=== PATIENT | male | born 1980 | race African-American/Black ===

== ENCOUNTER 2020-10-12 12:09 | Inpatient (IN) | payer OTHER ==
[2020-10-12 15:03] LABS: BASO % 0.8 % (0-2.0); EOS % 0.1 % (0-4.5); HEMATOCRIT 41.2 % (35.4-49); HEMOGLOBIN 13.6 GM/dL (11.7-16.9); LYMPH % 11.6 % (8-40); MCH 29.4 pg (25.7-33.7); MCHC 33.2 g/dl (32.0-35.9); MEAN CELL VOLUME 88.7 fl (80-96); MEAN PLT VOLUME 10.7 fl (7.5-11.1); MONO % 8.6 % (3.8-10.2); NEUT % 78.9 % (42.8-82.8); PLATELET COUNT 189 10^3/uL (134-434); RBC 4.64 M/mm3 (4.00-5.60); RDW 13.1 % (11.9-15.9); WHITE BLOOD COUNT 13.5 K/mm3 (4.0-10.0)
[2020-10-12 15:24] LABS: ALBUMIN 4.2 g/dl (3.4-5.0); BLOOD UREA NITROGEN 13.7 mg/dL (7-18); MAGNESIUM 2.6 mg/dL (1.8-2.4)
[2020-10-12 15:27] LABS: PHOSPHOROUS 4.3 mg/dL (2.5-4.9)
[2020-10-12 15:29] LABS: TOT PROT 7.3 g/dl (6.4-8.2)
[2020-10-12] MEDS ORDERED: SODIUM CHLORIDE 1,000 ML IV STA ×2 (16:47→18:35)
[2020-10-12 17:07] LABS: EPI CELLS 7 /uL (0-25.1); HYALINE CASTS 9 /uL (0-3.1); PH,URINE 5.5 (5.0-8.0); URINE APPEARANCE CLOUDY; URINE BACTERIA 7 /uL (0-1359); URINE BILIRUBIN 1+ (NEGATIVE); URINE COLOR DK YELLOW; URINE GLUCOSE (UA) NEGATIVE (NEGATIVE); URINE KETONE 2+ (NEGATIVE); URINE LEUK ESTERASE TRACE (NEGATIVE); URINE NITRITE NEGATIVE (NEGATIVE); URINE PROTEIN TRACE (NEGATIVE); URINE RBC 14 /uL (0-23.9); URINE WBC 24 /uL (0-25.8)
[2020-10-12] MEDS ORDERED: ACETAMINOPHEN 325 MG TABLET (FP) PO PRN (18:35)
[2020-10-12 18:38] LABS: METHADONE, UR NEGATIVE (NEGATIVE); OPIATES, URI NEGATIVE (NEGATIVE); URINE BENZODIAZEPINES NEGATIVE (NEGATIVE)
[2020-10-12 18:39] LABS: URINE AMPHETAMINES NEGATIVE (NEGATIVE); URINE BARBITURATES NEGATIVE (NEGATIVE)
[2020-10-12 18:41] LABS: COCAINE, UR POSITIVE (NEGATIVE); PHENCYCLIDINE,URINE POSITIVE (NEGATIVE)
[2020-10-12] MEDS ORDERED: levETIRAcetam 500 MG/5 ML INJECTION VIAL IVPB ONE ×2 (18:58→19:55)
[2020-10-12] MEDS: SODIUM CHLORIDE 1,000 ML IV SCH (19:07)
[2020-10-12] MEDS: NICOTINE 14 MG/24 HOURS TOPICAL PATCH TD SCH (20:08)
[2020-10-12 20:20] LABS: CALCIUM 8.2 mg/dL (8.5-10.1)
[2020-10-12 20:22] LABS: BLOOD UREA NITROGEN 12.5 mg/dL (7-18)
[2020-10-12 20:25] LABS: CREATININE 0.9 mg/dL (0.55-1.3)
[2020-10-13 00:37] VITALS: BMI 18.7
[2020-10-13] MEDS: SODIUM CHLORIDE 1,000 ML IV SCH ×2 (05:05→21:55)
[2020-10-13 09:30] LABS: HEMATOCRIT 38.9 % (35.4-49); HEMOGLOBIN 13.2 GM/dL (11.7-16.9); MCH 30.1 pg (25.7-33.7); MCHC 33.9 g/dl (32.0-35.9); MEAN CELL VOLUME 88.9 fl (80-96); MEAN PLT VOLUME 10.1 fl (7.5-11.1); PLATELET COUNT 152 10^3/uL (134-434); RBC 4.37 M/mm3 (4.00-5.60); WHITE BLOOD COUNT 8.9 K/mm3 (4.0-10.0)
[2020-10-13] MEDS: NICOTINE 14 MG/24 HOURS TOPICAL PATCH TD SCH (09:49)
[2020-10-13] MEDS: ENOXAPARIN NA (PORCINE) 40 MG/0.4 ML DISP.SYRIN SQ SCH (09:49)
[2020-10-13 10:22] LABS: ALBUMIN 3.5 g/dl (3.4-5.0); BLOOD UREA NITROGEN 6.8 mg/dL (7-18); CALCIUM 8.3 mg/dL (8.5-10.1)
[2020-10-13 10:26] LABS: PHOSPHOROUS 3.5 mg/dL (2.5-4.9)
[2020-10-13 10:30] LABS: BILIRUBIN,TOTAL 0.9 mg/dL (0.2-1); CREATININE 0.7 mg/dL (0.55-1.3); MAGNESIUM 2.3 mg/dL (1.8-2.4); TOT PROT 5.8 g/dl (6.4-8.2)
[2020-10-13] MEDS ORDERED: POTASSIUM CHLORIDE TABS 20 MEQ TABLET.ER (FP) PO ONE (14:17)
[2020-10-14 07:40] LABS: BASO % 0.7 % (0-2.0); EOS % 1.1 % (0-4.5); HEMATOCRIT 38.4 % (35.4-49); HEMOGLOBIN 13.1 GM/dL (11.7-16.9); LYMPH % 23.9 % (8-40); MCH 30.2 pg (25.7-33.7); MEAN CELL VOLUME 88.7 fl (80-96); MEAN PLT VOLUME 10.4 fl (7.5-11.1); MONO % 8.5 % (3.8-10.2); NEUT % 65.8 % (42.8-82.8); PLATELET COUNT 150 10^3/uL (134-434); RBC 4.33 M/mm3 (4.00-5.60); RDW 12.4 % (11.9-15.9); WHITE BLOOD COUNT 6.5 K/mm3 (4.0-10.0)
[2020-10-14 08:03] LABS: ALBUMIN 3.3 g/dl (3.4-5.0); CALCIUM 8.4 mg/dL (8.5-10.1)
[2020-10-14 08:04] LABS: BLOOD UREA NITROGEN 6.4 mg/dL (7-18); MAGNESIUM 2.3 mg/dL (1.8-2.4)
[2020-10-14 08:07] LABS: CREATININE 0.7 mg/dL (0.55-1.3); PHOSPHOROUS 3.2 mg/dL (2.5-4.9)
[2020-10-14 08:08] LABS: BILIRUBIN,TOTAL 0.6 mg/dL (0.2-1); TOT PROT 6.1 g/dl (6.4-8.2)
[2020-10-14] MEDS: NICOTINE 14 MG/24 HOURS TOPICAL PATCH TD SCH ×2 (09:41→10:19)
[2020-10-14] MEDS: ENOXAPARIN NA (PORCINE) 40 MG/0.4 ML DISP.SYRIN SQ SCH (09:41)
[2020-10-14] MEDS: SODIUM CHLORIDE 1,000 ML IV SCH (22:08)
[2020-10-15] MEDS: SODIUM CHLORIDE 1,000 ML IV SCH ×4 (00:47→20:38)
[2020-10-15] MEDS: ENOXAPARIN NA (PORCINE) 40 MG/0.4 ML DISP.SYRIN SQ SCH (09:24)
[2020-10-15] MEDS: NICOTINE 14 MG/24 HOURS TOPICAL PATCH TD SCH (09:24)
[2020-10-15 10:13] LABS: CALCIUM 8.9 mg/dL (8.5-10.1)
[2020-10-15 10:14] LABS: ALBUMIN 3.6 g/dl (3.4-5.0); BLOOD UREA NITROGEN 6.2 mg/dL (7-18)
[2020-10-15 10:20] LABS: BILIRUBIN,TOTAL 0.7 mg/dL (0.2-1)
[2020-10-15 11:56] LABS: CREATININE 0.9 mg/dL (0.55-1.3); TOT PROT 7.1 g/dl (6.4-8.2)
[2020-10-16] MEDS: SODIUM CHLORIDE 1,000 ML IV SCH ×2 (02:08→09:26)
[2020-10-16] MEDS: NICOTINE 14 MG/24 HOURS TOPICAL PATCH TD SCH (09:25)
[2020-10-16] MEDS: ENOXAPARIN NA (PORCINE) 40 MG/0.4 ML DISP.SYRIN SQ SCH ×2 (09:25→09:27)
[2020-10-16 09:30] LABS: HEMATOCRIT 40.9 % (35.4-49); HEMOGLOBIN 13.8 GM/dL (11.7-16.9); MCH 29.8 pg (25.7-33.7); MCHC 33.8 g/dl (32.0-35.9); MEAN CELL VOLUME 88.1 fl (80-96); MEAN PLT VOLUME 10.4 fl (7.5-11.1); PLATELET COUNT 156 10^3/uL (134-434); RBC 4.64 M/mm3 (4.00-5.60); RDW 12.5 % (11.9-15.9); WHITE BLOOD COUNT 6.2 K/mm3 (4.0-10.0)
[2020-10-16 10:02] LABS: CALCIUM 8.8 mg/dL (8.5-10.1)
[2020-10-16 10:03] LABS: ALBUMIN 3.6 g/dl (3.4-5.0); BLOOD UREA NITROGEN 8.6 mg/dL (7-18); MAGNESIUM 2.3 mg/dL (1.8-2.4)
[2020-10-16 10:06] LABS: CREATININE 0.7 mg/dL (0.55-1.3)
[2020-10-16 10:07] LABS: BILIRUBIN,TOTAL 0.6 mg/dL (0.2-1); TOT PROT 6.4 g/dl (6.4-8.2)
[2020-10-16] MEDS: SODIUM CHLORIDE 0.45% 1,000 ML IV SCH (15:28)
[2020-10-16 19:57] LABS: PH,URINE 7.5 (5.0-8.0); URINE APPEARANCE CLEAR; URINE BILIRUBIN NEGATIVE (NEGATIVE); URINE COLOR YELLOW; URINE GLUCOSE (UA) NEGATIVE (NEGATIVE); URINE KETONE NEGATIVE (NEGATIVE); URINE LEUK ESTERASE NEGATIVE (NEGATIVE); URINE NITRITE NEGATIVE (NEGATIVE); URINE PROTEIN NEGATIVE (NEGATIVE); URINE UROBILINOGEN 0.2 mg/dL (0.2-1.0)
[2020-10-17] MEDS: SODIUM CHLORIDE 0.45% 1,000 ML IV SCH (03:28)
[2020-10-17 08:42] LABS: BASO % 0.6 % (0-2.0); EOS % 2.3 % (0-4.5); HEMATOCRIT 41.8 % (35.4-49); LYMPH % 19.9 % (8-40); MCH 30.1 pg (25.7-33.7); MCHC 33.5 g/dl (32.0-35.9); MEAN CELL VOLUME 89.7 fl (80-96); MEAN PLT VOLUME 11.1 fl (7.5-11.1); MONO % 8.4 % (3.8-10.2); NEUT % 68.8 % (42.8-82.8); PLATELET COUNT 174 10^3/uL (134-434); RBC 4.66 M/mm3 (4.00-5.60); RDW 12.7 % (11.9-15.9); WHITE BLOOD COUNT 7.5 K/mm3 (4.0-10.0)
[2020-10-17 09:04] LABS: CHLORIDE 106 mmol/L (98-107); SODIUM 140 mmol/L (136-145)
[2020-10-17 09:13] LABS: BLOOD UREA NITROGEN 10.4 mg/dL (7-18)
[2020-10-17 09:14] LABS: ALBUMIN 3.8 g/dl (3.4-5.0); CALCIUM 9.1 mg/dL (8.5-10.1); GLUCOSE,RANDOM 76 mg/dL (74-106)
[2020-10-17 09:15] LABS: ANION GAP 3 MMOL/L (8-16); CO2 32 mmol/L (21-32)
[2020-10-17 09:17] LABS: SGOT/AST 20 U/L (15-37); SGPT/ALT 35 U/L (13-61)
[2020-10-17 09:18] LABS: CREATININE 0.7 mg/dL (0.55-1.3)
[2020-10-17 09:19] LABS: BILIRUBIN,TOTAL 0.5 mg/dL (0.2-1); TOT PROT 6.7 g/dl (6.4-8.2)
[2020-10-17 09:20] LABS: ALK PHOS 50 U/L (45-117)
[2020-10-17] MEDS: NICOTINE 14 MG/24 HOURS TOPICAL PATCH TD SCH (09:50)
[2020-10-17] MEDS: ENOXAPARIN NA (PORCINE) 40 MG/0.4 ML DISP.SYRIN SQ SCH (09:50)
[2020-10-17 15:19] VITALS: BP 105/65; PULSE 65; TEMP 98.5
== END 2020-10-17 15:22 | disposition other institution (70) | DRG 53 ==
LOC: JER 12:09 → JERBED 17:15 → J5S 23:38
PROVIDERS: ADMIT Internal Medicine; ATTEND Internal Medicine
DX: R56.9 Unspecified convulsions (principal); M62.82 Rhabdomyolysis; F17.210 Nicotine dependence, cigarettes, uncomplicated; F19.10 Other psychoactive substance abuse, uncomplicated; D72.829 Elevated white blood cell count, unspecified; M79.672 Pain in left foot; R94.5 Abnormal results of liver function studies; M54.2 Cervicalgia; E87.6 Hypokalemia; M25.512 Pain in left shoulder; I86.1 Scrotal varices; S93.402A Sprain of unspecified ligament of left ankle, initial encounter; X58.XXXA Exposure to other specified factors, initial encounter; Y92.9 Unspecified place or not applicable
CPT/HCPCS: 36415; 70450-TC; 71046-TC-FY; 73610-TC-LT-FY; 73630-TC-LT; 76870-TC; 76882-TC-RT-FY; 80048; 80053; 80307; 81003; 82550; 82553; 82728; 82962; 83735; 84100; 84484; 85025; 85027; 87086; 93005; 93010; 97116-GP; 97161-GP; 99285-25; C9803; U0003; U0005

== ENCOUNTER 2020-10-17 15:30 | Inpatient (IN) | payer OTHER ==
[2020-10-17 17:24] VITALS: BMI 19.2
[2020-10-17] MEDS ORDERED: MAGNESIUM CITRATE 300 ML BOTTLE PO PRN (19:35)
[2020-10-17] MEDS ORDERED: MAG HYDROX/AL HYDROX/SIMETH 30 ML UNIT-DOSE CUP PO PRN (19:35)
[2020-10-17] MEDS ORDERED: MAGNESIUM HYDROX 2400MG/30ML ORAL SUSPENSION 30 ML CUP PO PRN (19:35)
[2020-10-17] MEDS ORDERED: ACETAMINOPHEN 325 MG TABLET (FP) PO PRN (19:35)
[2020-10-17] MEDS ORDERED: guaiFENesin 200 MG/10 ML 10 ML UNIT-DOSE CUPS PO PRN (19:35)
[2020-10-17] MEDS ORDERED: LOPERAMIDE HCL 2 MG CAPSULE PO PRN (19:35)
[2020-10-17] MEDS: hydrOXYzine PAMOATE 25 MG CAPSULE (FP) PO SCH (21:31)
[2020-10-17] MEDS: MELATONIN 5 MG TABLETS PO SCH (21:31)
[2020-10-17] MEDS: THIAMINE HCL 100 MG TABLET (FP) PO SCH (21:31)
[2020-10-17] MEDS ORDERED: TUBERCULIN PPD 5 TU/0.1ML VIAL ID ONE (21:34)
[2020-10-17] MEDS: NICOTINE 10 MG CARTRIDGE (INHALER) IH PRN (22:00)
[2020-10-18 04:47] LABS: URINE APPEARANCE CLEAR; URINE BILIRUBIN NEGATIVE (NEGATIVE); URINE COLOR YELLOW; URINE GLUCOSE (UA) NEGATIVE (NEGATIVE); URINE KETONE NEGATIVE (NEGATIVE); URINE LEUK ESTERASE NEGATIVE (NEGATIVE); URINE NITRITE NEGATIVE (NEGATIVE); URINE PROTEIN NEGATIVE (NEGATIVE); URINE UROBILINOGEN 0.2 mg/dL (0.2-1.0)
[2020-10-18] MEDS: hydrOXYzine PAMOATE 25 MG CAPSULE (FP) PO SCH ×5 (06:15→21:19)
[2020-10-18] MEDS: PRENATAL VITAMINS W/ FOLIC ACID TABLET (FP) PO SCH (10:04)
[2020-10-18] MEDS: NICOTINE 7 MG/24 HOURS TOPICAL PATCH TD SCH (10:05)
[2020-10-18] MEDS: NICOTINE 10 MG CARTRIDGE (INHALER) IH PRN (10:05)
[2020-10-18 10:57] LABS: HEMATOCRIT 44.8 % (35.4-49); HEMOGLOBIN 14.9 GM/dL (11.7-16.9); MCH 29.9 pg (25.7-33.7); MCHC 33.4 g/dl (32.0-35.9); MEAN CELL VOLUME 89.5 fl (80-96); MEAN PLT VOLUME 12.1 fl (7.5-11.1); PLATELET COUNT 192 10^3/uL (134-434); RDW 13.2 % (11.9-15.9); WHITE BLOOD COUNT 9.6 K/mm3 (4.0-10.0)
[2020-10-18 12:36] LABS: BLOOD UREA NITROGEN 15.9 mg/dL (7-18)
[2020-10-18 12:39] LABS: CALCIUM 9.6 mg/dL (8.5-10.1); CREATININE 0.8 mg/dL (0.55-1.3)
[2020-10-18 12:40] LABS: BILIRUBIN,TOTAL 0.5 mg/dL (0.2-1)
[2020-10-18 12:41] LABS: TOT PROT 7.5 g/dl (6.4-8.2)
[2020-10-18 12:54] LABS: ALBUMIN 4.2 g/dl (3.4-5.0)
[2020-10-18] MEDS: IBUPROFEN 400 MG TABLET (FP) PO PRN (14:02)
[2020-10-18] MEDS: THIAMINE HCL 100 MG TABLET (FP) PO SCH (21:20)
[2020-10-18] MEDS: MELATONIN 5 MG TABLETS PO SCH (21:20)
[2020-10-19] MEDS: hydrOXYzine PAMOATE 25 MG CAPSULE (FP) PO SCH ×5 (06:29→21:28)
[2020-10-19] MEDS: PRENATAL VITAMINS W/ FOLIC ACID TABLET (FP) PO SCH (09:55)
[2020-10-19] MEDS: NICOTINE 10 MG CARTRIDGE (INHALER) IH PRN (09:56)
[2020-10-19] MEDS: NICOTINE 7 MG/24 HOURS TOPICAL PATCH TD SCH (10:46)
[2020-10-19] MEDS: THIAMINE HCL 100 MG TABLET (FP) PO SCH (21:28)
[2020-10-19] MEDS: MELATONIN 5 MG TABLETS PO SCH (21:28)
[2020-10-20] MEDS: hydrOXYzine PAMOATE 25 MG CAPSULE (FP) PO SCH ×2 (06:20→10:22)
[2020-10-20] MEDS: NICOTINE 10 MG CARTRIDGE (INHALER) IH PRN ×2 (10:21→21:23)
[2020-10-20] MEDS: PRENATAL VITAMINS W/ FOLIC ACID TABLET (FP) PO SCH (10:21)
[2020-10-20] MEDS: NICOTINE 7 MG/24 HOURS TOPICAL PATCH TD SCH (10:22)
[2020-10-20] MEDS ORDERED: hydrOXYzine PAMOATE 25 MG CAPSULE (FP) PO PRN (11:57)
[2020-10-20 13:15] LABS: HIV INTERPRETATION NEGATIVE (NEGATIVE)
[2020-10-20] MEDS: THIAMINE HCL 100 MG TABLET (FP) PO SCH (21:23)
[2020-10-20] MEDS: MELATONIN 5 MG TABLETS PO SCH (21:23)
[2020-10-21] MEDS: NICOTINE 10 MG CARTRIDGE (INHALER) IH PRN ×3 (06:26→18:32)
[2020-10-21] MEDS: PRENATAL VITAMINS W/ FOLIC ACID TABLET (FP) PO SCH (10:05)
[2020-10-21] MEDS: NICOTINE 7 MG/24 HOURS TOPICAL PATCH TD SCH (10:44)
[2020-10-21 14:08] LABS: SARS-CoV-2 NAA Not Detected (Not Detected)
[2020-10-21] MEDS: MELATONIN 5 MG TABLETS PO SCH (21:21)
[2020-10-21] MEDS: THIAMINE HCL 100 MG TABLET (FP) PO SCH (21:21)
[2020-10-22] MEDS: NICOTINE 10 MG CARTRIDGE (INHALER) IH PRN ×3 (06:53→21:17)
[2020-10-22] MEDS: NICOTINE 7 MG/24 HOURS TOPICAL PATCH TD SCH (10:10)
[2020-10-22] MEDS: PRENATAL VITAMINS W/ FOLIC ACID TABLET (FP) PO SCH (10:10)
[2020-10-22] MEDS: MELATONIN 5 MG TABLETS PO SCH (21:17)
[2020-10-22] MEDS: THIAMINE HCL 100 MG TABLET (FP) PO SCH (21:17)
[2020-10-23] MEDS: NICOTINE 10 MG CARTRIDGE (INHALER) IH PRN ×3 (06:13→21:21)
[2020-10-23] MEDS: PRENATAL VITAMINS W/ FOLIC ACID TABLET (FP) PO SCH (10:34)
[2020-10-23] MEDS: NICOTINE 7 MG/24 HOURS TOPICAL PATCH TD SCH (10:35)
[2020-10-23] MEDS: THIAMINE HCL 100 MG TABLET (FP) PO SCH (21:21)
[2020-10-23] MEDS: MELATONIN 5 MG TABLETS PO SCH (21:21)
[2020-10-24] MEDS: NICOTINE 10 MG CARTRIDGE (INHALER) IH PRN ×3 (06:16→17:52)
[2020-10-24] MEDS: PRENATAL VITAMINS W/ FOLIC ACID TABLET (FP) PO SCH (10:07)
[2020-10-24] MEDS: NICOTINE 7 MG/24 HOURS TOPICAL PATCH TD SCH (10:08)
[2020-10-24] MEDS: MELATONIN 5 MG TABLETS PO SCH (21:25)
[2020-10-24] MEDS: THIAMINE HCL 100 MG TABLET (FP) PO SCH (21:25)
[2020-10-25] MEDS: NICOTINE 10 MG CARTRIDGE (INHALER) IH PRN ×3 (06:22→21:10)
[2020-10-25] MEDS: PRENATAL VITAMINS W/ FOLIC ACID TABLET (FP) PO SCH (10:26)
[2020-10-25] MEDS: NICOTINE 7 MG/24 HOURS TOPICAL PATCH TD SCH (10:26)
[2020-10-25] MEDS: MELATONIN 5 MG TABLETS PO SCH (21:09)
[2020-10-25] MEDS: THIAMINE HCL 100 MG TABLET (FP) PO SCH (21:09)
[2020-10-26] MEDS: NICOTINE 10 MG CARTRIDGE (INHALER) IH PRN ×3 (06:28→21:12)
[2020-10-26] MEDS: NICOTINE 7 MG/24 HOURS TOPICAL PATCH TD SCH (10:08)
[2020-10-26] MEDS: PRENATAL VITAMINS W/ FOLIC ACID TABLET (FP) PO SCH (10:08)
[2020-10-26] MEDS: THIAMINE HCL 100 MG TABLET (FP) PO SCH (21:12)
[2020-10-26] MEDS: MELATONIN 5 MG TABLETS PO SCH (21:13)
[2020-10-27] MEDS: NICOTINE 10 MG CARTRIDGE (INHALER) IH PRN ×3 (06:44→20:03)
[2020-10-27] MEDS: PRENATAL VITAMINS W/ FOLIC ACID TABLET (FP) PO SCH (10:13)
[2020-10-27] MEDS: NICOTINE 7 MG/24 HOURS TOPICAL PATCH TD SCH (11:15)
[2020-10-27] MEDS: THIAMINE HCL 100 MG TABLET (FP) PO SCH (21:11)
[2020-10-27] MEDS: MELATONIN 5 MG TABLETS PO SCH (21:11)
[2020-10-28] MEDS: NICOTINE 10 MG CARTRIDGE (INHALER) IH PRN ×3 (06:14→21:50)
[2020-10-28] MEDS: PRENATAL VITAMINS W/ FOLIC ACID TABLET (FP) PO SCH (09:50)
[2020-10-28] MEDS: NICOTINE 7 MG/24 HOURS TOPICAL PATCH TD SCH (09:54)
[2020-10-28] MEDS: THIAMINE HCL 100 MG TABLET (FP) PO SCH (21:26)
[2020-10-28] MEDS: MELATONIN 5 MG TABLETS PO SCH (21:26)
[2020-10-29] MEDS: NICOTINE 10 MG CARTRIDGE (INHALER) IH PRN ×3 (06:18→21:23)
[2020-10-29] MEDS: NICOTINE 7 MG/24 HOURS TOPICAL PATCH TD SCH (09:57)
[2020-10-29] MEDS: PRENATAL VITAMINS W/ FOLIC ACID TABLET (FP) PO SCH (09:57)
[2020-10-29] MEDS: THIAMINE HCL 100 MG TABLET (FP) PO SCH (21:22)
[2020-10-29] MEDS: MELATONIN 5 MG TABLETS PO SCH (21:22)
[2020-10-30] MEDS: NICOTINE 10 MG CARTRIDGE (INHALER) IH PRN ×4 (06:07→21:18)
[2020-10-30] MEDS: PRENATAL VITAMINS W/ FOLIC ACID TABLET (FP) PO SCH (10:15)
[2020-10-30] MEDS: NICOTINE 7 MG/24 HOURS TOPICAL PATCH TD SCH (10:15)
[2020-10-30] MEDS: MELATONIN 5 MG TABLETS PO SCH (21:18)
[2020-10-30] MEDS: THIAMINE HCL 100 MG TABLET (FP) PO SCH (21:18)
[2020-10-31] MEDS: NICOTINE 10 MG CARTRIDGE (INHALER) IH PRN ×3 (06:25→19:18)
[2020-10-31] MEDS: PRENATAL VITAMINS W/ FOLIC ACID TABLET (FP) PO SCH (10:03)
[2020-10-31] MEDS: NICOTINE 7 MG/24 HOURS TOPICAL PATCH TD SCH (10:04)
[2020-10-31] MEDS: THIAMINE HCL 100 MG TABLET (FP) PO SCH (21:21)
[2020-10-31] MEDS: MELATONIN 5 MG TABLETS PO SCH (21:22)
[2020-11-01] MEDS: NICOTINE 10 MG CARTRIDGE (INHALER) IH PRN ×3 (06:45→21:11)
[2020-11-01] MEDS: NICOTINE 7 MG/24 HOURS TOPICAL PATCH TD SCH (10:21)
[2020-11-01] MEDS: PRENATAL VITAMINS W/ FOLIC ACID TABLET (FP) PO SCH (10:21)
[2020-11-01] MEDS: MELATONIN 5 MG TABLETS PO SCH (21:11)
[2020-11-01] MEDS: THIAMINE HCL 100 MG TABLET (FP) PO SCH (21:11)
[2020-11-02] MEDS: IBUPROFEN 400 MG TABLET (FP) PO PRN ×2 (01:42→10:11)
[2020-11-02] MEDS: NICOTINE 7 MG/24 HOURS TOPICAL PATCH TD SCH (10:07)
[2020-11-02] MEDS: PRENATAL VITAMINS W/ FOLIC ACID TABLET (FP) PO SCH (10:07)
[2020-11-02] MEDS: NICOTINE 10 MG CARTRIDGE (INHALER) IH PRN ×3 (10:08→21:17)
[2020-11-02] MEDS: AMOXICILLIN 500 MG CAPSULE (FP) PO SCH ×2 (11:54→21:16)
[2020-11-02] MEDS: MAG HYDROX/ALH/SMC/DPHA/LIDO 240 ML MOUTHWASH MM SCH ×2 (12:57→17:00)
[2020-11-02] MEDS: MELATONIN 5 MG TABLETS PO SCH (21:16)
[2020-11-02] MEDS: THIAMINE HCL 100 MG TABLET (FP) PO SCH (21:16)
[2020-11-03] MEDS: MAG HYDROX/ALH/SMC/DPHA/LIDO 240 ML MOUTHWASH MM SCH ×4 (01:15→19:42)
[2020-11-03] MEDS: NICOTINE 10 MG CARTRIDGE (INHALER) IH PRN ×4 (05:49→21:20)
[2020-11-03] MEDS: PRENATAL VITAMINS W/ FOLIC ACID TABLET (FP) PO SCH (09:51)
[2020-11-03] MEDS: NICOTINE 7 MG/24 HOURS TOPICAL PATCH TD SCH (09:55)
[2020-11-03] MEDS: AMOXICILLIN 500 MG CAPSULE (FP) PO SCH ×2 (09:55→21:19)
[2020-11-03] MEDS: IBUPROFEN 400 MG TABLET (FP) PO PRN (15:45)
[2020-11-03] MEDS: THIAMINE HCL 100 MG TABLET (FP) PO SCH (21:19)
[2020-11-03] MEDS: MELATONIN 5 MG TABLETS PO SCH (21:20)
[2020-11-04] MEDS: MAG HYDROX/ALH/SMC/DPHA/LIDO 240 ML MOUTHWASH MM SCH ×5 (00:15→23:01)
[2020-11-04] MEDS: NICOTINE 10 MG CARTRIDGE (INHALER) IH PRN ×3 (06:17→21:22)
[2020-11-04] MEDS: AMOXICILLIN 500 MG CAPSULE (FP) PO SCH ×2 (10:00→21:20)
[2020-11-04] MEDS: NICOTINE 7 MG/24 HOURS TOPICAL PATCH TD SCH (10:00)
[2020-11-04] MEDS: PRENATAL VITAMINS W/ FOLIC ACID TABLET (FP) PO SCH (10:00)
[2020-11-04] MEDS: THIAMINE HCL 100 MG TABLET (FP) PO SCH (21:20)
[2020-11-04] MEDS: MELATONIN 5 MG TABLETS PO SCH (21:21)
[2020-11-05] MEDS: NICOTINE 10 MG CARTRIDGE (INHALER) IH PRN ×2 (06:06→10:07)
[2020-11-05] MEDS: MAG HYDROX/ALH/SMC/DPHA/LIDO 240 ML MOUTHWASH MM SCH ×3 (06:06→18:27)
[2020-11-05] MEDS: PRENATAL VITAMINS W/ FOLIC ACID TABLET (FP) PO SCH (10:07)
[2020-11-05] MEDS: NICOTINE 7 MG/24 HOURS TOPICAL PATCH TD SCH (10:07)
[2020-11-05] MEDS: AMOXICILLIN 500 MG CAPSULE (FP) PO SCH ×2 (10:07→21:29)
[2020-11-05] MEDS ORDERED: PT OWN MED DRAWER 7, Y5N ONE ×3 (13:30→21:32)
[2020-11-05] MEDS: THIAMINE HCL 100 MG TABLET (FP) PO SCH (21:29)
[2020-11-05] MEDS: MELATONIN 5 MG TABLETS PO SCH (21:30)
[2020-11-06] MEDS: MAG HYDROX/ALH/SMC/DPHA/LIDO 240 ML MOUTHWASH MM SCH ×5 (00:57→23:05)
[2020-11-06] MEDS: NICOTINE 10 MG CARTRIDGE (INHALER) IH PRN ×3 (06:12→21:23)
[2020-11-06] MEDS: PRENATAL VITAMINS W/ FOLIC ACID TABLET (FP) PO SCH (10:15)
[2020-11-06] MEDS: NICOTINE 7 MG/24 HOURS TOPICAL PATCH TD SCH (10:32)
[2020-11-06] MEDS: AMOXICILLIN 500 MG CAPSULE (FP) PO SCH ×2 (10:32→21:22)
[2020-11-06] MEDS: MELATONIN 5 MG TABLETS PO SCH (21:22)
[2020-11-06] MEDS: THIAMINE HCL 100 MG TABLET (FP) PO SCH (21:22)
[2020-11-07] MEDS: MAG HYDROX/ALH/SMC/DPHA/LIDO 240 ML MOUTHWASH MM SCH ×3 (06:00→17:32)
[2020-11-07] MEDS: NICOTINE 10 MG CARTRIDGE (INHALER) IH PRN ×3 (06:38→21:17)
[2020-11-07] MEDS: PRENATAL VITAMINS W/ FOLIC ACID TABLET (FP) PO SCH (09:58)
[2020-11-07] MEDS: NICOTINE 7 MG/24 HOURS TOPICAL PATCH TD SCH (09:59)
[2020-11-07] MEDS: AMOXICILLIN 500 MG CAPSULE (FP) PO SCH ×2 (10:38→21:17)
[2020-11-07] MEDS: MELATONIN 5 MG TABLETS PO SCH (21:17)
[2020-11-07] MEDS: THIAMINE HCL 100 MG TABLET (FP) PO SCH (21:17)
[2020-11-08] MEDS: MAG HYDROX/ALH/SMC/DPHA/LIDO 240 ML MOUTHWASH MM SCH ×4 (00:15→17:53)
[2020-11-08] MEDS: NICOTINE 10 MG CARTRIDGE (INHALER) IH PRN ×4 (06:00→21:25)
[2020-11-08] MEDS: AMOXICILLIN 500 MG CAPSULE (FP) PO SCH ×2 (10:07→21:24)
[2020-11-08] MEDS: PRENATAL VITAMINS W/ FOLIC ACID TABLET (FP) PO SCH (10:07)
[2020-11-08] MEDS: NICOTINE 7 MG/24 HOURS TOPICAL PATCH TD SCH (10:08)
[2020-11-08] MEDS: LIDOCAINE 5% TOPICAL PATCH TP SCH (12:12)
[2020-11-08] MEDS: METHOCARBAMOL 500 MG TABLET PO SCH ×3 (14:47→21:24)
[2020-11-08] MEDS: THIAMINE HCL 100 MG TABLET (FP) PO SCH (21:23)
[2020-11-08] MEDS: MELATONIN 5 MG TABLETS PO SCH (21:24)
[2020-11-08] MEDS: LIDOCAINE PATCH REMOVAL MC SCH (21:24)
[2020-11-09] MEDS: MAG HYDROX/ALH/SMC/DPHA/LIDO 240 ML MOUTHWASH MM SCH ×5 (00:25→23:10)
[2020-11-09] MEDS: NICOTINE 10 MG CARTRIDGE (INHALER) IH PRN ×3 (06:04→17:43)
[2020-11-09] MEDS: LIDOCAINE 5% TOPICAL PATCH TP SCH (10:06)
[2020-11-09] MEDS: NICOTINE 7 MG/24 HOURS TOPICAL PATCH TD SCH (10:06)
[2020-11-09] MEDS: METHOCARBAMOL 500 MG TABLET PO SCH ×4 (10:06→21:18)
[2020-11-09] MEDS: PRENATAL VITAMINS W/ FOLIC ACID TABLET (FP) PO SCH (10:06)
[2020-11-09] MEDS: LIDOCAINE PATCH REMOVAL MC SCH (21:18)
[2020-11-09] MEDS: MELATONIN 5 MG TABLETS PO SCH (21:18)
[2020-11-09] MEDS: THIAMINE HCL 100 MG TABLET (FP) PO SCH (21:18)
[2020-11-10] MEDS ORDERED: PT OWN MED DRAWER 7, Y5N ONE (03:22)
[2020-11-10] MEDS: MAG HYDROX/ALH/SMC/DPHA/LIDO 240 ML MOUTHWASH MM SCH ×4 (06:05→23:05)
[2020-11-10] MEDS: NICOTINE 10 MG CARTRIDGE (INHALER) IH PRN ×3 (06:05→20:02)
[2020-11-10] MEDS: PRENATAL VITAMINS W/ FOLIC ACID TABLET (FP) PO SCH (10:03)
[2020-11-10] MEDS: METHOCARBAMOL 500 MG TABLET PO SCH ×4 (10:04→21:33)
[2020-11-10] MEDS: LIDOCAINE 5% TOPICAL PATCH TP SCH (10:04)
[2020-11-10] MEDS: NICOTINE 7 MG/24 HOURS TOPICAL PATCH TD SCH (10:04)
[2020-11-10] MEDS: MELATONIN 5 MG TABLETS PO SCH (21:33)
[2020-11-10] MEDS: THIAMINE HCL 100 MG TABLET (FP) PO SCH (21:33)
[2020-11-10] MEDS: LIDOCAINE PATCH REMOVAL MC SCH (22:48)
[2020-11-11] MEDS: NICOTINE 10 MG CARTRIDGE (INHALER) IH PRN ×4 (05:57→21:13)
[2020-11-11] MEDS: MAG HYDROX/ALH/SMC/DPHA/LIDO 240 ML MOUTHWASH MM SCH ×4 (05:57→23:00)
[2020-11-11] MEDS: NICOTINE 7 MG/24 HOURS TOPICAL PATCH TD SCH (09:55)
[2020-11-11] MEDS: PRENATAL VITAMINS W/ FOLIC ACID TABLET (FP) PO SCH (09:55)
[2020-11-11] MEDS: LIDOCAINE 5% TOPICAL PATCH TP SCH (09:55)
[2020-11-11] MEDS: METHOCARBAMOL 500 MG TABLET PO SCH ×4 (09:57→21:12)
[2020-11-11] MEDS: LIDOCAINE PATCH REMOVAL MC SCH (21:12)
[2020-11-11] MEDS: THIAMINE HCL 100 MG TABLET (FP) PO SCH (21:12)
[2020-11-11] MEDS: MELATONIN 5 MG TABLETS PO SCH (21:12)
[2020-11-12] MEDS: MAG HYDROX/ALH/SMC/DPHA/LIDO 240 ML MOUTHWASH MM SCH ×4 (06:05→23:31)
[2020-11-12] MEDS: NICOTINE 10 MG CARTRIDGE (INHALER) IH PRN ×4 (06:05→21:25)
[2020-11-12] MEDS: PRENATAL VITAMINS W/ FOLIC ACID TABLET (FP) PO SCH (09:56)
[2020-11-12] MEDS: NICOTINE 7 MG/24 HOURS TOPICAL PATCH TD SCH (09:56)
[2020-11-12] MEDS: LIDOCAINE 5% TOPICAL PATCH TP SCH (09:56)
[2020-11-12] MEDS: METHOCARBAMOL 500 MG TABLET PO SCH ×4 (09:56→21:24)
[2020-11-12] MEDS ORDERED: PT OWN MED DRAWER 7, Y5N ONE (15:29)
[2020-11-12] MEDS: THIAMINE HCL 100 MG TABLET (FP) PO SCH (21:24)
[2020-11-12] MEDS: MELATONIN 5 MG TABLETS PO SCH (21:24)
[2020-11-12] MEDS: LIDOCAINE PATCH REMOVAL MC SCH (21:25)
[2020-11-13] MEDS: MAG HYDROX/ALH/SMC/DPHA/LIDO 240 ML MOUTHWASH MM SCH ×4 (06:20→23:23)
[2020-11-13] MEDS: P-EPHED 60MG/TRIPROLIDI 2.5MG TABLET PO PRN ×2 (06:20→21:12)
[2020-11-13] MEDS: LIDOCAINE 5% TOPICAL PATCH TP SCH (10:14)
[2020-11-13] MEDS: NICOTINE 7 MG/24 HOURS TOPICAL PATCH TD SCH (10:14)
[2020-11-13] MEDS: METHOCARBAMOL 500 MG TABLET PO SCH ×4 (10:14→21:11)
[2020-11-13] MEDS: PRENATAL VITAMINS W/ FOLIC ACID TABLET (FP) PO SCH (10:14)
[2020-11-13] MEDS: NICOTINE 10 MG CARTRIDGE (INHALER) IH PRN ×3 (10:15→18:16)
[2020-11-13] MEDS ORDERED: BENZOCAINE/MENTHOL 1 EACH LOZENGE MM PRN (10:21)
[2020-11-13] MEDS ORDERED: PT OWN MED DRAWER 7, Y5N ONE (17:04)
[2020-11-13] MEDS: MELATONIN 5 MG TABLETS PO SCH (21:11)
[2020-11-13] MEDS: THIAMINE HCL 100 MG TABLET (FP) PO SCH (21:11)
[2020-11-13] MEDS: LIDOCAINE PATCH REMOVAL MC SCH (21:12)
[2020-11-14 06:51] VITALS: BP 95/65; PULSE 74; TEMP 98.5
[2020-11-14] MEDS: MAG HYDROX/ALH/SMC/DPHA/LIDO 240 ML MOUTHWASH MM SCH (06:56)
[2020-11-14] MEDS: PRENATAL VITAMINS W/ FOLIC ACID TABLET (FP) PO SCH (10:35)
[2020-11-14] MEDS: NICOTINE 10 MG CARTRIDGE (INHALER) IH PRN (10:35)
[2020-11-14] MEDS: NICOTINE 7 MG/24 HOURS TOPICAL PATCH TD SCH (10:36)
[2020-11-14] MEDS: METHOCARBAMOL 500 MG TABLET PO SCH (10:36)
[2020-11-14] MEDS: LIDOCAINE 5% TOPICAL PATCH TP SCH (10:36)
== END 2020-11-14 10:58 | disposition home or self-care (01) | DRG 772 ==
LOC: YASAS 15:30 → Y3W 20:11
PROVIDERS: ADMIT Allergy & Immunology; ATTEND Allergy & Immunology
PROC: HZ42ZZZ Group Counseling for Substance Abuse Treatment, Cognitive-Behavioral (ICD-10-PCS; principal; 2020-10-17)
DX: F16.20 Hallucinogen dependence, uncomplicated (principal); F12.20 Cannabis dependence, uncomplicated; F17.210 Nicotine dependence, cigarettes, uncomplicated; K08.89 Other specified disorders of teeth and supporting structures; M25.512 Pain in left shoulder; Z59.0 Homelessness
CPT/HCPCS: 36415; 80053; 81003; 85027; 86780; 86803; 87389; C9803; U0003; U0005